=== PATIENT | female | born 1990 | race Caucasian/White ===

== ENCOUNTER → 2017-01-30 | Outpatient (CLI) | payer OTHER ==
[~2017-01-30] MED LIST: MULTI VITAMINS1 TAB PO; ZOFRAN ODT4 MG SL
== END | disposition home or self-care (01) ==
LOC: US 16:56
DX: R10.2 Pelvic and perineal pain (principal); R10.9 Unspecified abdominal pain

== ENCOUNTER → 2020-04-27 | Outpatient (CLI) | payer BC | END | disposition home or self-care (01) | LOC: COVID19 10:32 | PROVIDERS: ATTEND Nurse Practitioner Family | DX: Z20.828 Contact with and (suspected) exposure to other viral communicable diseases (principal) ==

== ENCOUNTER 2023-09-13 08:40 | Emergency (ER) | payer OTHER ==
[~2023-09-13] VITALS: Ht 157.4 cm; Wt 55.8 kg
[2023-09-13] MEDS ORDERED: SODIUM CHLORIDE 0.9% 1,000 ML IV ONE (09:00)
[2023-09-13] MEDS ORDERED: Ketorolac Tromethamine 15 MG/ML VIAL IV ONE (09:00)
[2023-09-13] MEDS ORDERED: diphenhydrAMINE hydrochloride 50 MG/ML VIAL IV ONE (09:00)
[2023-09-13] MEDS ORDERED: Metoclopramide Hydrochloride 10 MG/2 ML AMP IV ONE (09:00)
[2023-09-13 09:12] LABS: BASO % 0.2 % (0.0-1.0); EOS % 0.2 % (1.0-4.0); HEMATOCRIT 41.2 % (37.0-47.0); LYMPH # 0.7 10*3/uL (1.3-4.4); LYMPH % 15.6 % (27.0-41.0); MEAN CELL VOLUME 96.5 fl (81.0-99.0); MEAN CORPUSCULAR HGB 31.6 pg (27.0-31.0); MEAN CORPUSCULAR HGB CONC 32.8 g/dl (33.0-37.0); MEAN PLATELET VOLUME 10.6 fl (9.6-12.3); MONO # 0.2 10*3/uL (0.1-1.0); NEUT # 3.8 10*3/uL (2.3-7.9); PLATELET COUNT AUTOMATED 158 10*3/uL (130-400); RED BLOOD COUNT 4.27 10*6/uL (4.10-5.10); RED CELL DISTRI WIDTH 12.9 % (0-14.5); WHITE BLOOD COUNT 4.7 10*3/uL (4.8-10.8)
[2023-09-13 09:49] LABS: ALKALINE PHOSPHATASE 65 U/L (46-116); CHLORIDE 105 mmol/L (98-107); POTASSIUM 3.8 mmol/L (3.4-5.1); SGPT/ALT 33 U/L (5-49); TOTAL PROTEIN 7.6 gm/dL (6.0-8.0)
[2023-09-13 09:56] LABS: BUN < 5 mg/dl (9-23)
[2023-09-13] MEDS ORDERED: REGLAN10 M1 PO (10:00)
[2023-09-13] MEDS ORDERED: IBU800 M2 PO (10:00)
== END 2023-09-13 10:19 | disposition home or self-care (01) ==
LOC: ED 08:40
PROVIDERS: Emergency Medicine
DX: R51.9 Headache, unspecified (principal); R11.2 Nausea with vomiting, unspecified; Z98.51 Tubal ligation status